=== PATIENT | male | born 1955 | race Caucasian/White ===

== ENCOUNTER 2020-05-02 09:28 | Emergency (ER) | payer OTHER, SELFPAY ==
[2020-05-02 09:40] VITALS: BP 189/57; PULSE 87; RESP 18; TEMP 36.6; O2SAT 95; BMI 32.7
[2020-05-02 10:02] VITALS: PULSE 91; RESP 25; O2SAT 96
[2020-05-02 10:14] LABS: Add Manual Diff / Slide Review NO; Basophils Absolute Auto 100 /uL (0-100); Eosinophils Absolute Auto 0 /uL (0-450); Eosinophils Percent Auto 0.5 % (2-4); Hematocrit 49.8 % (41-53); Hemoglobin 16.7 g/dL (13.5-17.5); Lymphocytes Absolute Auto 1600 /uL (1100-4500); Lymphocytes Percent Auto 17.3 % (25-40); Mean Corpuscular HGB Conc 33.6 % (30-36); Mean Corpuscular Hemoglobin 32.5 PG (26-34); Mean Corpuscular Volume 96.8 fL (80-100); Monocytes Absolute Auto 600 /uL (0-900); Monocytes Percent Auto 6.3 % (3-14); Neutrophils Absolute Auto 6900 /uL (1500-7000); Neutrophils Percent Auto 74.9 % (50-75); Platelet Count 307 X10^3/uL (150-400); Red Blood Cell Count 5.15 X10^6/uL (4.5-5.9); Red Cell Distribution Width 12.8 % (11.6-14.8); White Blood Cell Count 9.2 X10^3/uL (4.5-11.0)
--- NOTE | 2020-05-02 10:22 | ED.GENADULT ---
HPI - General Adult General Chief complaint: Dizziness Stated complaint: sweaty, 144/104 BP, bad episodes Time Seen by Provider: 05/02/20 09:36 Source: patient Mode of arrival: Family Vehicle Limitations: no limitations History of Present Illness HPI narrative: 64-year-old male who came into the emergency department today because he states that this morning he had an episode where he was sitting on the couch. He states he became very lightheaded. He did not described as a vertigo sensation. He thinks that it was a fairly sudden onset. The time he was not having any chest pain or shortness of breath. He states he felt like he was going to pass out. He checked his blood sugar with his his glucose monitor and it was greater than 120. Symptoms seem to last approximately 30 minutes of then completely resolved. Has had symptoms similar to this over the past couple weeks. It seems to only occur in the morning. He states that today felt very similar to his prior episodes just worse. He states that in the past when the symptoms happened he has drank orange juice and then the symptoms seemed to resolve. At other times over the past several weeks he has checked his blood sugar in the morning and has been in the 50s. Related Data Allergies Allergy/AdvReac Type Severity Reaction Status Date / Time No Known Drug Allergies Allergy Verified 05/02/20 09:52 Review of Systems Constitutional Constitutional: Denies fatigue, Denies fever(s) and Denies headache(s) Eyes Eyes: Denies loss of vision ENT Ears, Nose, Mouth, and Throat: Reports dizziness, Denies headache(s) and Reports disequilibrium Cardiovascular Cardiovascular: Denies chest pain and Denies dyspnea Respiratory Respiratory: Denies dyspnea Gastrointestinal Gastrointestinal: Denies abdominal pain Musculoskeletal Musculoskeletal: Denies arthralgias and Denies myalgias Integumentary/Breasts Skin/Breast: Denies lesions and Denies rash Neurologic Neurologic: Denies behavioral changes, Reports dizziness, Denies headache(s), Denies loss of vision and Reports disequilibrium Psychiatric Psychiatric: Denies behavioral changes Endocrine Endocrine: Denies fatigue Hematologic/Lymphatic Hematologic/Lymphatic: Denies easy bleeding and Denies easy bruising Patient History Surgical History No pertinent past surgical history Social History Smoking Status: Current every day smoker Smoking Status: Current every day smoker tobacco type: cigarettes alcohol intake frequency: 0-2 drinks per day Substance Use Type: does not use Exam Initial Vital Signs Initial Vital Signs: Vital Signs Temperature 97.9 F 05/02/20 09:40 Pulse Rate 87 05/02/20 09:40 Respiratory Rate 18 05/02/20 09:40 Blood Pressure 189/57 H 05/02/20 09:40 Pulse Oximetry 95 05/02/20 09:40 Const General: cooperative, comfortable, well developed and well groomed Limitations: mental status not altered HENMT Head: normal to inspection and normocephalic Resp Effort & Inspection: normal respiratory effort Auscultation: clear to auscultation bilaterally Cardio Rate: regular rate Rhythm: regular rhythm GI Inspection: non-distended Palpation: soft, No firm and No tender Skin Lesions: no lesions Rashes: no rashes Neuro General: patient alert, patient awake and patient oriented x3 Cognition: normal cognition Speech: speech normal Motor: muscle tone normal throughout Sensory Exam: no sensory deficits noted Extrem General: normal to inspection and capillary refill normal Psych Appearance: grossly normal and well kempt Scores GCS Pedro coma scale eye opening: Spontaneous Amonate coma scale verbal response: Orientated Amonate coma scale motor response: Obey commands Pedro coma scale total score: 15 Course Orders Ordered: ED Orders 05/02/20 09:45 EKG-12 Lead Stat 05/02/20 10:05 Complete Blood Count AUTO DIFF Stat Comprehensive Metabolic Panel Stat Lipase Stat Troponin & CK Cardiac Panel Stat Vital Signs Vital signs: Vital Signs - 8 hr 05/02/20 09:40 05/02/20 10:02 05/02/20 10:30 Temperature 97.9 F Pulse Rate 87 91 H 79 Respiratory Rate 18 25 H 21 Blood Pressure 189/57 H 159/73 H Pulse Oximetry 95 96 94 05/02/20 11:29 Temperature Pulse Rate 83 Respiratory Rate 12 Blood Pressure 173/72 H Pulse Oximetry 83 L Medical Decision Making Lab Data Lab results reviewed: Yes I reviewed the patient's lab results. Result diagrams: 05/02/20 10:05 05/02/20 10:05 Labs: Lab Results 05/02/20 05/02/20 Range/Units 10:05 10:05 WBC 9.2 (4.5-11.0) X10^3/uL RBC 5.15 (4.5-5.9) X10^6/uL Hgb 16.7 (13.5-17.5) g/dL Hct 49.8 (41-53) % MCV 96.8 (80-100) fL MCH 32.5 (26-34) PG MCHC 33.6 (30-36) % RDW 12.8 (11.6-14.8) % Plt Count 307 (150-400) X10^3/uL Neut % (Auto) 74.9 (50-75) % Lymph % (Auto) 17.3 L (25-40) % Throckmorton % (Auto) 6.3 (3-14) % Eos % (Auto) 0.5 L (2-4) % Baso % (Auto) 1.0 (0-2) % Neut # (Auto) 6900 (3857-7598) /uL Lymph # (Auto) 1600 (7555-4121) /uL Throckmorton # (Auto) 600 (0-900) /uL Eos # (Auto) 0 (0-450) /uL Baso # (Auto) 100 (0-100) /uL Sodium 138 (137-145) mmol/L Potassium 4.4 (3.4-5.1) mmol/L Chloride 103 (98-107) mmol/L Carbon Dioxide 26 (22-32) mmol/L BUN 17 (9-20) mg/dL Creatinine 0.75 (0.66-1.25) mg/dL Estimated GFR > 60.0 (>60) mL/min BUN/Creatinine Ratio 22.7 H (6-22) Glucose 134 H (80-110) mg/dL Calcium 9.4 (8.4-10.2) mg/dL Total Bilirubin 0.5 (0.2-1.3) mg/dL AST 28 (17-59) IU/L ALT 25 (<50) IU/L Alkaline Phosphatase 67 (38-126) U/L Total Creatine Kinase 63 (55-170) U/L CK-MB (CK-2) TNP CK-MB (CK-2) Rel Index TNP Troponin I < 0.012 (0.01-0.034) ng/mL Total Protein 7.7 (6.3-8.2) g/dL Albumin 4.4 (3.5-5.0) g/dL Globulin 3.3 (1.7-4.1) g/dL Albumin/Globulin Ratio 1.3 (1.0-2.8) Lipase 53 (23-300) U/L ECG Data Attestation: I personally reviewed and interpreted this ECG as follows: Prior ECG tracings: not available for review Interpretation: Sinus rhythm Ventricular rate is 76 Occasional PVC Incomplete right bundle-branch block Nonspecific ST T wave changes MDM Narrative Medical decision making narrative: Patient was asymptomatic here in the ER. Had a long discussion with him regarding his symptoms. He is some features of his symptoms I would be concerning for hypoglycemia. He has woken up in the mornings in the past and has had low blood sugar. He has also had resolution of symptoms after drinking orange juice however today when he was having symptoms he took his blood sugar was greater than 120. I did inform him he needed talk with his primary doctor about obtaining a glucometer so he can take his blood sugar and a more regular basis to confirm that it is not his blood sugar that is causing his problems. We also discussed other potential issues such as arrhythmias like atrial fibrillation. He has PVCs on his EKG today otherwise it is relatively unremarkable. He denies any chest pain or palpitations during the time of these events. And told him that he needed to talk with his primary doctor about obtaining a Holter monitor. Symptoms are not consistent with CVA or TIA. Feel patient could be safely discharged home. He will follow-up with his primary provider as described above. Expressed understanding and agreement. Discharge Plan Departure Patient Disposition: Home Clinical Impression: Lightheadedness Instructions: DI for Dizziness-Nonvertigo Activity Restrictions/Additional Instructions: I do recommend that you check your blood sugar at home like we discussed. I recommend you talk with your primary doctor about how to accurately check your blood sugar during these times. I also recommend that you talk with your primary doctor about a Holter monitor. Return to the emergency department for any new or worsening symptoms
[2020-05-02 10:27] LABS: Alanine Aminotransferase 25 IU/L (<50); Albumin 4.4 g/dL (3.5-5.0); Albumin Globulin Ratio 1.3 (1.0-2.8); Alkaline Phosphatase 67 U/L (38-126); Aspartate Aminotransferase 28 IU/L (17-59); BUN Creatinine Ratio 22.7 (6-22); Bilirubin Total 0.5 mg/dL (0.2-1.3); Blood Urea Nitrogen 17 mg/dL (9-20); Calcium 9.4 mg/dL (8.4-10.2); Carbon Dioxide 26 mmol/L (22-32); Chloride 103 mmol/L (98-107); Creatine Kinase 63 U/L (55-170); Estimated Glomerular Filt Rate > 60.0 mL/min (>60); Globulin 3.3 g/dL (1.7-4.1); Glucose 134 mg/dL (80-110); HEMOLYSIS < 15 (0-50); Lipase 53 U/L (23-300); Potassium 4.4 mmol/L (3.4-5.1); Sodium 138 mmol/L (137-145); Total Protein 7.7 g/dL (6.3-8.2)
[2020-05-02 10:30] VITALS: BP 159/73; PULSE 79; RESP 21; O2SAT 94
[2020-05-02 10:38] LABS: Troponin I < 0.012 ng/mL (0.01-0.034)
[2020-05-02 11:29] VITALS: BP 173/72; PULSE 83; RESP 12; O2SAT 83
== END 2020-05-02 11:30 | disposition home or self-care (01) ==
PROVIDERS: Emergency Provider Emergency Medicine
DX: R42 Dizziness and giddiness (principal); R07.9 Chest pain, unspecified
CPT/HCPCS: 36415; 80053; 82550; 83690; 84484; 85025; 93005; 93010; 99283; 99284

== ENCOUNTER → 2020-07-03 09:00 | Outpatient (CLI) | payer OTHER, SELFPAY ==
[2020-07-03 10:56] LABS: COVID19 -Nasal RAPID Negative (Negative)
== END ==
PROVIDERS: Visit Provider Surgery
DX: Z01.812 Encounter for preprocedural laboratory examination (principal); Z20.822 Contact with and (suspected) exposure to COVID-19
CPT/HCPCS: 87635; C9803

== ENCOUNTER 2020-07-04 07:10 | Day surgery (SDC) | payer OTHER, SELFPAY ==
[2020-07-04] VITALS (8 sets, daily range): BP systolic 116–141; BP diastolic 48–83; PULSE 83–99; RESP 15–27; TEMP 35.7–36.6; O2SAT 94–99; BMI 31.3
--- NOTE | 2020-07-04 | PATH_ITS ---
[facility] Accession Number: [id number] . 01 Material submitted: . PART A: cecum - CECAL POLYP PART B: colon - 80CM COLON POLYP PART C: colon - 90CM COLON POLYP PART D: colon - FLAT COLON POLYP 80CM (TATTOO) PART E: colon - 60CM COLON POLYP PART F: colon - 50CM COLON POLYP PART G: colon - 30CM COLON POLYP PART H: rectum - RECTAL . 01 Clinical history: . B: POLYP X6 E: POLYP X2 . 02 Diagnosis: A. Cecum, Polyp, Biopsy: Tubulovillous adenoma. No evidence of malignancy or high-grade dysplasia. . B. Colon, Polyp 80 cm x6, Biopsies: Tubular adenoma in eight of multiple fragments. . C. Colon, Polyp 90 cm, Biopsy: Tubulovillous adenoma. No evidence of malignancy or high-grade dysplasia. . D. Colon, Polyp 80 cm, Flat (Tattoo), Biopsy: Tubular adenoma. . E. Colon, Polyp x2, 60 cm, Biopsies: Tubular adenomas. . F. Colon, Polyp 50 cm, Biopsy: Tubulovillous adenoma. No evidence of malignancy or high-grade dysplasia. . G. Colon, Polyp 30 cm, Biopsy: Tubular adenoma. . H. Rectum, Polyp, Biopsy: Hyperplastic polyp. [facility] 07/09/2020 1405 Local . 02 Electronically signed: . Verna Spain MD, Pathologist NPI- [id number] . 01 Gross description: . Part A: CECAL POLYP: Received in formalin are multiple fragment(s) of hahn, soft tissue measuring 0.1 x 0.1 x 0.1 cm to 1.2 x 0.6 x 0.5 cm submitted entirely in 1 cassette(s) Part B: 80CM COLON POLYP: Received in formalin are multiple fragment(s) of hahn, soft tissue measuring 0.1 x 0.1 x 0.1 cm to 0.3 x 0.3 x 0.3 cm submitted entirely in 1 cassette(s) Part C: 90CM COLON POLYP: Received in formalin are 3 fragment(s) of hahn, soft tissue measuring 0.1 x 0.1 x 0.1 cm to 0.7 x 0.6 x 0.4 cm submitted entirely in 1 cassette(s) Part D: FLAT COLON POLYP 80CM (TATTOO): Received in formalin are 2 fragment(s) of hahn, soft tissue measuring 0.2 x 0.2 x 0.2 cm to 0.9 x 0.8 x 0.6 cm submitted entirely in 1 cassette(s) Part E: 60CM COLON POLYP: Received in formalin are 4 fragment(s) of hahn, soft tissue measuring 0.1 x 0.1 x 0.1 cm to 0.6 x 0.5 x 0.4 cm submitted entirely in 1 cassette(s) Part F: 60CM COLON POLYP: Received in formalin are multiple fragment(s) of hahn, soft tissue measuring 0.1 x 0.1 x 0.1 cm to 0.7 x 0.6 x 0.5 cm submitted entirely in 1 cassette(s) Part CM COLON POLYP: Received in formalin is 1 fragment(s) of hahn, soft tissue measuring 0.7 x 0.6 x 0.5 cm submitted entirely in 1 cassette(s) Part H: RECTAL: Received in formalin is 1 fragment(s) of hahn, soft tissue measuring 0.3 x 0.3 x 0.3 cm submitted entirely in 1 cassette(s) /STEW 07/07/2020 1807 Local . 02 Pathologist provided ICD-10: D12.0, D12.6 . 02 CPT . 113636, 387442, 720852, 537002, 211483, 944447, [id number], [id number] Performed at: [facility] [address] [id number] MD Alan Saravia MD Phone: [phone] [facility] [address] [place], [place] [id number] MD Verna Spain MD Phone: [phone]
[2020-07-04] MEDS: SODIUM CHLORIDE 0.9% 1,000 ML 200 ML IV ×2 (07:34→09:31)
--- NOTE | 2020-07-04 08:26 | PM.PREOP ---
Pre-operative Note COVID-19 COVID-19 status: Negative Result date/Date tested (Pos, Neg/Pending): 07/03/20 Interval Note History & Physical reviewed/Exam performed by Physician: Yes Changes to H&P: No ASA Class (for procedural sedation): II
--- NOTE | 2020-07-04 08:27 | PM.OP.ENDO ---
Operative Date/Time/Diagnoses Date of procedure: 07/04/20 Time of procedure: 08:27 Pre-op diagnosis: Positive Cologuard, personal history of rectal cancer Post-op diagnosis: other (Multiple polyps, the largest of which was 3 cm in the cecum, no evidence of recurrent rectal cancer) Procedure & Clinicians Study performed: Colonoscopy Procedural sedation performed by the endoscopy Polypectomy times 13 removed with hot snare, cold snare, Jumbo forceps Saline injection to lift polyps prior to removal x 2 Tattooing of polypectomy site at 80cm Same procedure as scheduled: Yes Indications: Positive Cologuard, personal history of rectal cancer Surgeon: Latrice Felton Procedure Notes SCOAP/Timeout: Performed Procedure in detail: The patient was brought to the room and placed in left lateral decubitus position with all bony prominences padded. A time-out was performed and then the patient was given procedural sedation starting with 4 mg of Versed [id number]] mcg of fentanyl. Vitals were monitored throughout the procedure and remained stable. Once adequately sedated, the procedure was begun. A rectal exam was performed revealing no abnormalities. The colonoscope was then introduced to the rectum and advanced to the cecum in the usual fashion. As we were advancing the scope, we gave another 2 mg of Versed another 100 micro g of fentanyl. However, the patient had poor tolerance of the procedure with lability of his blood pressure and levels of sedation. Many polyps were identified on the way in, and it was clear that the procedure would take quite a long time, and the patient was not tolerating it under conscious sedation. So after 21 minutes of procedural sedation, we called the anesthesiologist to come in and provide MAC. The cecum was identified by the appendiceal orifice, the mucosal tri-fold, and the ileocecal valve. A large 3 cm flat polyp in the cecum was identified. Saline was injected beneath the polyp, to lift it up. The polyp was removed with 24 mm snare, using cautery. There was good hemostasis and no appearance of perforation. The polyp was retrieved with a Yanez Net passed off for pathology. The scope was then retracted while rotating side to side and examining each mucosal fold. At 90 cm there was a 1 cm polyp removed with cold snare. At 80 cm there were 6 polyps seen which were about 5 mm each. They were all removed with Jumbo forceps. A large flat polyp was seen also around the 80 cm kim which appeared to be very firm, consistent with possible regrowth of a polyp which was removed before. This was lifted with saline, and removed with hot snare. This site was tattooed with ink spot, using 3 mL in 3 different injection sites between 70 and 90 cm. Two more polyps removed from 60 cm using hot snare, another polyp was removed from 50 cm, another 1 from 30 cm, and a biopsy was taken in the lower rectum, at the suspected site of prior polypectomy which appeared scarred. The biopsy was taken with Jumbo forceps. Moderate diverticulosis was seen in the descending and sigmoid colon, with no evidence of active diverticulitis. At the conclusion of the procedure retroflexion was performed and small grade 1-2 internal hemorrhoids without stigmata of bleeding were seen. The scope was then withdrawn from the rectum the procedure was concluded. The patient tolerated the procedure well and was transferred to the PACU in stable condition. Scope withdrawal time: 27 Sedation minutes: 21 Findings: diverticulosis and polyp (Many large polyps, and in small polyps) Specimen(s): other (Large cecal polyp, 6 polyps from 80 cm, 1 polyp from 90 cm, large flat polyp from 80 cm, 2 polyps from 60 cm, 1 polyp from 50 cm, 1 polyp from 30 cm, and rectal biopsy) Complications: none Impression: Many large and small polyps. No evidence of recurrent rectal cancer. Post-procedure Recommendations: Other recommendation (Recommendations will depend on pathology results. At minimum the patient will need a repeat colonoscopy in 1 year.) Follow up: weeks (Will call for follow-up when pathology results have returned) Disposition: PACU
[2020-07-04] MEDS: MIDAZOLAM 5 MG/5 ML VIAL IV (08:45)
[2020-07-04] MEDS: fentaNYL 250 MCG/5 ML INJ IV (08:51)
--- NOTE | 2020-07-04 10:33 | SUR.PHASEI ---
Pt arrived, slow to wake, patent airway, pt slightly awake Dr. Felton spoke with pt, would like patient to stay so she can talk again when more awake.
--- NOTE | 2020-07-04 11:34 | SUR.PHASEII ---
Patient resting quietly in stretcher. No needs at this moment. Awaiting physician to follow-up with prior to discharge.
--- NOTE | 2020-07-08 15:37 | PM.HP.1 ---
History of Present Illness History of Present Illness Date Patient Seen: 07/04/20 Chief complaint: DX COLONOSCOPY Narrative: This is a 64-year-old man with history of obesity (BMI 32), hypertension, COPD, and hyperlipidemia. He quit smoking for 13 years but restarted 6 months ago. He comes in today for colonoscopy due to positive cologuard test. He was also recently started on a new antihypertensive medication for worsening high blood pressure. He also has a known adrenal mass, which is currently undergoing a lab workup to rule out a functional adrenal tumor. ROS: Positive for easy bruising, shortness of breath. Thirteen system review is otherwise negative other than as mentioned below and in HPI. PE: GENERAL: Well groomed and cooperative. Appears stated age. Answers questions promptly and appropriately. Vital signs noted. HENT: Normocephalic, atraumatic. Hearing intact. EYES: Conjunctiva pink, sclera white, no periorbital swelling. CARDIOVASCULAR: Regular rate. No pedal edema. RESPIRATORY: Non-tachypneic, breathing comfortably on room air. Coarse cough. GASTROINTESTINAL: Abdomen soft and non-distended, moderate rectus diastasis, 4 cm reducible umbilical hernia, with approximately 2 cm abdominal wall defect GENITALURINARY: No flank tenderness. MUSCULOSKELETAL: Equal tone and mass bilaterally. SKIN: Warm, dry, soft, appropriate color for ethnicity. No other lesions, rashes, or wounds. NEURO: Alert and Oriented X 3. No gross sensory deficits, or cognitive issues. PSYCH: Appropriate affect and mood. Patient History Medical History COPD (chronic obstructive pulmonary disease) Elevated cholesterol Emphysema lung History of colon polyps History of rectal cancer HTN (hypertension) Incomplete RBBB PAC (premature atrial contraction) Prediabetes PVC (premature ventricular contraction) Rectal cancer (~1995) Sleep apnea with use of nocturnal bilevel positive airway pressure (BPAP) Surgical History History of colonoscopy Hx of inguinal hernia repair No pertinent past surgical history Family & Social History Family History Mother Gallstones Father Cancer Diabetes mellitus Sister Breast cancer Social History: household members spouse Tobacco & Substance use: Tobacco type cigarettes Smoking Status Former smoker alcohol intake current alcohol intake frequency holiday/special occasion Substance Use Type does not use Meds Home Medications and Allergies Home Medications Medication Instructions Recorded Confirmed Type atorvastatin 10 mg tablet 10 mg PO DAILY 05/27/20 07/04/20 History fluticasone 100 mcg-salmeterol 50 1 inh INHALATION BID 05/27/20 07/04/20 History mcg/dose blistr powdr for inhalation lisinopril 5 mg tablet 5 mg PO DAILY 05/27/20 07/04/20 History tiotropium bromide 1.25 2 puff INHALATION DAILY 05/27/20 07/04/20 History mcg/actuation mist for inhalation Allergies Allergy/AdvReac Type Severity Reaction Status Date / Time No Known Drug Allergies Allergy Verified 07/04/20 07:24 Exam Vital Signs (past 8 hours): Oxygen Delivery Method Room Air Assessment & Plan Assessment and plan (1) Positive colorectal cancer screening using Cologuard test: Status: Acute (2) Obesity (BMI 30.0-34.9): Status: Acute (3) Cigarette smoker motivated to quit: Status: Acute (4) Adrenal tumor: Status: Acute Assessment & Plan narrative: Risks and benefits of colonoscopy and possible polypectomy were discussed with the patient including risk of bleeding, perforation, need for additional procedures, risks of anesthesia. The patient desires to proceed with the colonoscopy procedure. COVID-19 COVID-19 status: Negative Result date/Date tested (Pos, Neg/Pending): 07/03/20 Time Spent With Patient Time with patient: 15-24 minutes Quality VTE Deep Vein Thrombosis/Pulmonary Embolism Present on Admission: No
== END 2020-07-04 12:03 | disposition home or self-care (01) ==
PROVIDERS: PCP Nurse Practitioner Family; Referring Provider Nurse Practitioner Family; Visit Provider Surgery
PROC: 0DJD8ZZ Inspection of Lower Intestinal Tract, Via Natural or Artificial Opening Endoscopic (ICD-10-PCS; CPT 45378; principal; 2020-07-04 08:30)
DX: R19.5 Other fecal abnormalities (principal); E66.9 Obesity, unspecified; F17.210 Nicotine dependence, cigarettes, uncomplicated; Z85.038 Personal history of other malignant neoplasm of large intestine; Z68.32 Body mass index [BMI] 32.0-32.9, adult; J44.9 Chronic obstructive pulmonary disease, unspecified; D12.0 Benign neoplasm of cecum; D12.6 Benign neoplasm of colon, unspecified
CPT/HCPCS: 45390; 45385; 45380; 45384; 45381; 99152; J2250; J3010

== ENCOUNTER → 2022-03-29 12:48 | Outpatient (CLI) | payer MEDICARE, OTHER, SELFPAY ==
[2022-03-29 14:51] LABS: COVID19 -Nasal RAPID Negative (Negative)
== END ==
PROVIDERS: PCP Nurse Practitioner Family; Visit Provider Surgery
DX: Z01.812 Encounter for preprocedural laboratory examination (principal); Z20.822 Contact with and (suspected) exposure to COVID-19
CPT/HCPCS: 87635; C9803

== ENCOUNTER 2022-03-30 05:17 | Day surgery (SDC) | payer MEDICARE, OTHER, SELFPAY ==
[2022-03-25 15:20] VITALS: BMI 31.6
[2022-03-30] VITALS (7 sets, daily range): BP systolic 123–159; BP diastolic 63–86; PULSE 87–97; RESP 14–18; TEMP 36.2–37.1; O2SAT 93–96; BMI 33.2
[2022-03-30] MEDS: LACTATED RINGERS 1,000 ML 42 ML IV (07:20)
[2022-03-30] MEDS: LACTATED RINGERS 1,000 ML 120 ML IV (07:30)
--- NOTE | 2022-03-30 08:01 | PM.PREOP ---
Pre-operative Note COVID-19 COVID-19 status: Negative Interval Note History & Physical reviewed/Exam performed by Physician: Yes Changes to H&P: No H&P completed within 30 days and has changed as indicated here:: Biochemical work up for adrenal tumor, results not seen. Discussed with anesthesia. Have note from PCP ok to proceed with surgery.
[2022-03-30] MEDS: CEFAZOLIN 2 GM/100 ML PREMIX 100 ML IV (08:10)
--- NOTE | 2022-03-30 09:01 | SUR.OPER ---
Supine on padded OR bed, head on pillow, arms padded and tucked at sides, legs uncrossed, safety belt at thigh, tape over blanket over lower legs .
--- NOTE | 2022-03-30 09:01 | SUR.OPER ---
PATIENT TEARFUL PRE OP- HAS DEMENTIA AND IS PROGRESSING TO A MORE INVOLVED STAGE. VOIDED 75 ML PRE PROCEDURE
[2022-03-30] MEDS: BUPIVACAINE 0.5% W/ EPI (PF) 30 ML VIAL INJ (09:25)
--- NOTE | 2022-03-30 14:04 | SUR.PHASEII ---
Pt taught and demonstrated IS. Up to 2049cc. Umbilical drsg saturated. Drsg reinforced with 2/2's and tegaderm.
--- NOTE | 2022-03-30 15:56 | PM.OP.1 ---
Procedure & Clinicians Procedure: Bilateral laparoscopic inguinal hernia repair not incarcerated not gangrenous Umbilical hernia repair Same procedure as scheduled: Yes Indications: Mr. Bryant has been having symptomatic right recurrent inguinal hernia. He also is symptomatic from his umbilical hernia which has been documented as problematic in the past in his medical record. I discussed with him the risks benefits and alternatives of proceeding with a laparoscopic inguinal hernia repair due to the recurrent nature as well as checking the left side and repairing that since a left-sided hernia is palpable on exam. He understood the risks benefits and alternatives to this surgical plan and wished to proceed. Surgeon: Heike Bojorquez Click Yes if Unassisted: Yes Anesthesia Type: General Operative Notes Procedure in detail: Patient was taken to the operating room and placed supine on the operating room table both his arms were tucked. A preop time-out was performed antibiotics were administered bilateral SCDs were placed general endotracheal anesthesia was induced. The abdomen was prepped and draped in the usual sterile fashion. Local anesthetic was infused below the umbilicus and an 11 blade scalpel was used to enter the skin electrocautery was used to carry this incision down to the anterior abdominal wall fascia which was doubly grasped elevated and entered sharply with an 11 blade scalpel. An intraperitoneal position was confirmed with a finger sweep, though he did have quite a large amount of preperitoneal fat which was dissected through using my finger prior to entering the abdominal cavity. I then placed the Heron trocar into this wound and initially the insufflation pressure was too high and it was found to be in the preperitoneal space. Therefore the trocar was removed and replaced and at that time was intraperitoneal and insufflation was successful after the adjustment. Next 2 accessory trocars were placed in the midclavicular line line lateral to the umbilicus bilaterally under direct visualization. Two graspers were introduced and the patient was placed in a Trendelenburg position. a indirect hernia was seen. The peritoneal layer was entered with electrocautery and a flap of peritoneum was brought down to display the inguinal anatomy. The vas deferens and the epigastric vessels were identified as well as a hernia sac entering the internal ring. The hernia sac was ligated and the pubic tubercle and Martín's ligament were dissected free and palpated laparoscopically a medium-sized mesh was placed. A laparoscopic 0 Prolene suture was placed through the Martín's ligament to secure the medial portion of the mesh. The mesh was then placed in 2 a position centered around the indirect hernia space and also covering the femoral and direct hernia locations. A running V lock suture was then used to close the peritoneum over top of the mesh in a running fashion. Next attention was directed to the left inguinal region. There was adhesive disease involving the sigmoid colon directly overlying the internal ring. Therefore lysis of adhesions was performed for about 20 minutes to view the anatomy. During the lysis of adhesions the peritoneum overlying the inguinal region was disrupted. Next the internal ring was visualized and a small hernia sac was seen entering. Decision was made to proceed with placing a mesh over the left inguinal region as well. Electrocautery was used to incise the peritoneum and the peritoneal flap was brought down, however due to the lysis of adhesions, there were some necessary holes in this flap. The vas deferens and epigastric vessel anatomy was easily visualized, and a mesh was placed into the abdomen and easily maneuvered into the appropriate anatomic location. The suture V lock was used to close the peritoneum; however, this closure was not perfect and very small portions of the mesh had to be left uncovered by peritoneum. Next attention was turned to the umbilical region. The accessory trocars were removed under direct visualization and the abdomen was desufflated. The umbilical incision was opened further using 15 blade scalpel skirting around the left side of the umbilicus. The umbilical stalk was dissected free and the umbilical hernia was delineated. The umbilical defect was approximately 4 cm in diameter. I did open the incision into the umbilical hernia to create one single defect. I then used a 12 x [address] mesh to place in to the defect. I tried to open a preperitoneal pocket in which to place this mesh. There were some areas where the mesh undoubtedly is intraperitoneal. I secured the 4 corners of the mesh using a 0 Prolene suture. I then closed the previously placed stay sutures in the fascial incision from the umbilical port site over top the mesh. The the subcuticular tissue was closed and the umbilical stalk was tacked down using 3-0 Vicryl suture in an interrupted fashion. The skin was closed with a 4-0 running Monocryl and dressed with Steri-Strips. The remainder of the local anesthetic was infused around the area. Mr. Bryant tolerated the procedure well and went in good condition to the postoperative care unit EBL was minimal. there were no complications. Complications: none Post-operative Disposition: PACU
== END 2022-03-30 13:55 | disposition home or self-care (01) ==
PROVIDERS: PCP Nurse Practitioner Family; Referring Provider Student in an Organized Health Care Education/Training Program; Visit Provider Surgery
PROC: 0YQ64ZZ Repair Left Inguinal Region, Percutaneous Endoscopic Approach (ICD-10-PCS; CPT 49651; principal; 2022-03-30 07:45)
PROC: (CPT 49651; 2022-03-30 07:45)
DX: K40.21 Bilateral inguinal hernia, without obstruction or gangrene, recurrent (principal); K42.9 Umbilical hernia without obstruction or gangrene; G47.33 Obstructive sleep apnea (adult) (pediatric); I10 Essential (primary) hypertension; K66.0 Peritoneal adhesions (postprocedural) (postinfection); L76.22 Postprocedural hemorrhage of skin and subcutaneous tissue following other procedure
CPT/HCPCS: 49651; 49585; 99281; J0690; J1100; J1170; J1885; J2250; J2704; J3010

== ENCOUNTER 2022-03-30 20:30 | Emergency (ER) | payer MEDICARE, OTHER, SELFPAY ==
[2022-03-30 20:38] VITALS: BP 148/72; PULSE 76; RESP 20; TEMP 37; O2SAT 94
--- NOTE | 2022-03-30 22:07 | ED_ITS ---
HPI - Recheck/Abnormal Lab/Rx General Chief Complaint: Recheck/Abnormal Lab/Rx Stated Complaint: bleeding post op hernia repair this am Time Seen by Provider: 03/30/22 21:38 Source: patient Mode of arrival: Ambulatory History of Present Illness HPI narrative: Patient is a 66-year-old male history of hypertension hyperlipidemia presenting today after umbilical hernia repair and right recurrent inguinal hernia repair. Does use discharged home and had bleeding through his dressing. He is not on any anti-platelet or anticoagulation medication. He has no significant abdominal pain. Was concerned because there is quite a bit of blood dripping out. No dizziness or lightheadedness. No nausea or vomiting. Related Data Home Medications Medication Instructions Recorded Confirmed lisinopril 5 mg tablet 5 mg PO DAILY 05/27/20 03/30/22 tiotropium bromide 1.25 2 puff inhalation DAILY 05/27/20 03/30/22 mcg/actuation mist for inhalation (Spiriva Respimat) atorvastatin 40 mg tablet 40 mg PO DAILY 03/02/22 03/30/22 fluticasone 250 mcg-salmeterol 50 1 inh inhalation BID 03/02/22 03/30/22 mcg/dose blistr powdr for inhalation hydroxyzine HCl 25 mg tablet 25 mg PO BID 03/02/22 03/30/22 meclizine 25 mg tablet 25 mg PO DAILY PRN Dizziness 03/02/22 03/30/22 Previous Rx's Medication Instructions Recorded docusate sodium 100 mg capsule 100 mg PO BID #14 caps 03/30/22 (Colace) ibuprofen 600 mg tablet 600 mg PO Q6H #20 tabs 03/30/22 oxycodone-acetaminophen 5 mg-325 1 tab PO Q6H PRN pain #20 tabs 03/30/22 mg tablet (Percocet) Allergies Allergy/AdvReac Type Severity Reaction Status Date / Time No Known Drug Allergies Allergy Verified 03/30/22 06:49 Review of Systems Review of Systems Narrative: GENERAL: Denies chills,fever HEENT: Denies throat pain RESPIRATORY: Denies dyspnea, cough, wheezing CARDIOVASCULAR: Denies chest pain, palpitations GASTROINTESTINAL: Denies nausea, vomiting MUSCULOSKELETAL: Denies extremity pain, injury SKIN: See HPI NEUROLOGIC: Denies weakness, dizziness, headache, numbness 8 point review of systems is negative except for those stated above and HPI Patient History Medical History (Updated 03/30/22 @ 22:12 by Munira Guerrero DO) COPD (chronic obstructive pulmonary disease) Easy bruisability Elevated cholesterol Emphysema lung History of colon polyps History of rectal cancer HTN (hypertension) Incomplete RBBB PAC (premature atrial contraction) Prediabetes PVC (premature ventricular contraction) Rectal cancer (~1995) Sleep apnea with use of nocturnal bilevel positive airway pressure (BPAP) Surgical History History of colonoscopy Hx of inguinal hernia repair No pertinent past surgical history Family History Mother Gallstones Father Cancer Diabetes mellitus Sister Breast cancer Social History marital status: household members: spouse occupational status: previously employed Smoking Status: Former smoker alcohol intake: current substance use type: does not use Smoking Status: Former smoker tobacco type: cigarettes alcohol intake frequency: holidays/special occasions only Substance Use Type: does not use Exam Initial Vital Signs Initial Vital Signs: Vital Signs Temperature 98.6 F 03/30/22 20:38 Pulse Rate 76 03/30/22 20:38 Respiratory Rate 20 03/30/22 20:38 Blood Pressure 148/72 H 03/30/22 20:38 Pulse Oximetry 94 03/30/22 20:38 Oxygen Delivery Method 03/30/22 20:38 GENERAL: Alert pleasant 66-year-old male CARDIOVASCULAR: peripheral pulses in tact, cap refill <2 sec RESPIRATORY: No respiratory distress, speaks in full sentences without difficulty ABDOMEN: Soft, nontender, no guarding or rebound normal contusion minimal tenderness EXTREMITIES: Normal range of motion, no clubbing or edema. Neurovascularly in tact NEUROLOGICAL: Cranial nerves II through XII grossly intact. Normal gait and speech. SKIN: Incision sites noted right-sided incision site mild dehiscence no Steri- Strips is present. Left side Steri strip in place no active bleeding umbilical site is where the dressing is soaked there is no active bleeding at this time Steri-Strips placed over the incision for precautions Course Vital Signs Vital signs: Vital Signs - 8 hr 03/30/22 20:38 Temperature 98.6 F Pulse Rate 76 Respiratory Rate 20 Blood Pressure 148/72 H Pulse Oximetry 94 Oxygen Delivery Method Room Air MDM - Recheck/Abnormal Lab/Rx MDM Narrative Medical decision making narrative: Steri-Strips were placed over incision sites dressing placed. No active bleeding. He has no significant abdominal pain. These are incisional bleeding sites only. No need for any further workup for imaging. Discharge Plan Departure Patient Disposition: Home Clinical Impression: Postoperative hemorrhage from incision Instructions: DI for Postoperative Pain Activity Restrictions/Additional Instructions: *You have been diagnosed with postoperative bleeding *What to do: At this time please keep dressings on Steri-Strips will fall off follow surgical discharge instructions *Continue to take medications as directed *Follow up with your primary care provider in 2-3 days or call [phone] *Return to ER if you should have increased pain persistent vomiting persistent bleeding or any new, worsening or concerning symptoms Prescriptions: No Action Spiriva Respimat 1.25 mcg/actuation mist 2 puff inhalation DAILY lisinopril 5 mg tablet 5 mg PO DAILY hydroxyzine HCl 25 mg tablet 25 mg PO BID meclizine 25 mg tablet 25 mg PO DAILY PRN (Reason: Dizziness) atorvastatin 40 mg tablet 40 mg PO DAILY fluticasone propion-salmeterol 250-50 mcg/dose blister with device 1 inh inhalation BID docusate sodium [Colace] 100 mg capsule 100 mg PO BID Qty: 14 0RF oxycodone-acetaminophen [Percocet] 5-325 mg tablet 1 tab PO Q6H PRN (Reason: pain) Qty: 20 0RF Rx Instructions: take 1-2 tabs every 6 hours as needed for pain. ibuprofen 600 mg tablet 600 mg PO Q6H Qty: 20 0RF Referrals: Yumiko San ARNP [Primary Care Provider] - Visit Report Forms: Patient Portal/API
== END 2022-03-30 22:18 | disposition home or self-care (01) ==
PROVIDERS: Emergency Provider Emergency Medicine; PCP Nurse Practitioner Family
DX: L76.22 Postprocedural hemorrhage of skin and subcutaneous tissue following other procedure (principal)
CPT/HCPCS: 99281